=== PATIENT | female | born 1985 | race Caucasian/White ===

== ENCOUNTER 2022-11-13 21:59 | Emergency (ER) | payer MEDICAID, OTHER ==
[~2022-11-13] VITALS: Ht 160 cm; Wt 45.6 kg
[2022-11-13 22:08] VITALS: BP 122/83; PULSE 80; RESP 16; TEMP 98.6; O2SAT 100
--- NOTE | 2022-11-13 22:19 | NUR ---
[facility] CALLED. CASE NO. [id number]
--- NOTE | 2022-11-13 22:32 | NUR ---
Spoke with [facility]'s Office. Spoke with Deputy [place]. stated he would try to come see the patient if able, but they were busy tonight. RN verbalized understanding.
--- NOTE | 2022-11-13 22:36 | NUR ---
PATIENT PROVIDED WITH DRY CLOTHES.
[2022-11-14] MEDS ORDERED: acetaminophen 325mg tablet PO ONE (03:05)
== END 2022-11-14 07:56 | disposition home or self-care (01) ==
LOC: EEVIPCON 21:59 → ER 21:59
DX: S05.12XA Contusion of eyeball and orbital tissues, left eye, initial encounter (principal); S80.02XA Contusion of left knee, initial encounter; Y04.8XXA Assault by other bodily force, initial encounter; Y93.89 Activity, other specified; Y92.89 Other specified places as the place of occurrence of the external cause; Y99.8 Other external cause status
CPT/HCPCS: 70450; 99284

== ENCOUNTER 2023-11-27 11:51 | Emergency (ER) | payer MEDICAID, OTHER ==
[~2023-11-27] VITALS: Ht 160 cm; Wt 62.8 kg
[2023-11-27 12:03] VITALS: BP 121/80; PULSE 92; RESP 18; TEMP 98.6; O2SAT 99
[2023-11-27] MEDS ORDERED: PRED10TA23 PO (12:54)
[2023-11-27] MEDS: triamcinolone acetonide 40mg/ml inj IM ONE (13:02)
== END 2023-11-27 13:07 | disposition home or self-care (01) ==
LOC: ER 11:52
DX: L50.9 Urticaria, unspecified (principal); Z59.00 Homelessness unspecified
CPT/HCPCS: 96372; 99283; J3301

== ENCOUNTER 2024-11-25 20:14 | Emergency (ER) | payer MEDICAID ==
[~2024-11-25] VITALS: Ht 160 cm; Wt 51.9 kg
[~2024-11-25 20:14] MED LIST: PRED10TA23 PO
[2024-11-25 20:24] VITALS: BP 109/97; PULSE 95; RESP 18; TEMP 98.2; O2SAT 100
--- NOTE | 2024-11-25 22:45 | Physician Documentation ---
History of Present Illness General Chief Complaint: See Chief Complaint Stated Complaint: GLASS IN THUMB Time Seen by MD: 22:14 Primary Medical Doctor: None History of Present Illness Initial Comments This is a 39-year-old female who presents requesting a 2nd opinion about glass in my thumb patient reports the glass has been there for 20 years. Patient additionally reports glass has been coming out of other parts of her body. Patient reports no HI or SI. Medication Reconciliation Allergies: Coded Allergies: No Known Allergies (Unverified , 11/27/23) Scheduled Prednisone (Prednisone), 1 TAB PO DAILY Past Medical History Past Medical History: No Pertinent History Review of Systems ROS As stated above in the HPI, otherwise all systems are reviewed and negative. Physical Exam Physical Exam Vital Signs: Temperature: 98.2, Source: Oral, Heart Rate: 95, Respiratory Rate: 18, BP: 109/97, Pulse Oximetry: 100, Weight: 51.900 Physical Exam VITALS: Reviewed and as above. GENERAL: Alert, nontoxic appearing, no apparent distress. RESPIRATORY: No increased work of breathing, no respiratory distress, speaking in full clear sentences SKIN: Skin of all fingers no foreign body or wounds observed NEURO: GCS 15 PSYCH: Bizarre mood and affect, stating no HI or SI Progress Results/Orders Results/Orders Vital Signs 11/25/24 20:24 Temp 98.2 Pulse 95 Resp 18 B/P (MAP) 109/97 Pulse Ox 100 Medical Decision Making Findings This 39-year-old female presented requesting a 2nd opinion for the glass that is in my fingers, there was no observable foreign bodies in the skin of the fingers and has patient reports that the glass has been present for 20 years and been shedding from other areas of her body I believe patient is having delusions of foreign body. Patient is otherwise well-appearing and is voicing no HI or SI therefore I do not believe she meets criteria for 1799 hold. Patient is well dressed and appears able to provide for herself therefore does not meet criteria for 1799 due to grave disability as well. I discussed with the patient no observable glass and advised her to follow up with the primary care provider which she verbalized understanding of. Patient provided return to [facility]. Verbalized all discharge instructions. Differential Diagnosis Delusions, visual hallucinations, substance abuse, intoxication, retained foreign body, cellulitis, abscess Departure Time of Disposition: 22:45 Disposition: 01 HOME / SELF CARE / HOMELESS Impression: Primary Impression: Delusions Additional Impression: Sensation of foreign body Condition: Improved Additional Instructions: There was no observable foreign body in your skin of your fingers, please follow up with your primary care provider. Please follow up with your primary care provider in the next few days. Please return to the emergency department for any new or worsening concerning symptoms. Referrals: NO PRIMARY CARE PROVIDER (PCP) Education Educated: Patient Educated regarding: diagnosis, treatment, prognosis, need for follow up Signature Scribe Signature: No scribe Attestation: The note accurately reflects work and decisions made by me.PAUL Cifuentes 11/26/24 11:45 DIANE ALONZO Nov 25, 2024 22:45
== END 2024-11-25 22:52 | disposition home or self-care (01) ==
LOC: ER 20:14
DX: F22 Delusional disorders (principal); R09.A9 Foreign body sensation, other site
CPT/HCPCS: 99282